=== PATIENT | male | born 1945 | race Caucasian/White ===

== ENCOUNTER → 2017-03-17 | Outpatient (CLI) | payer OTHER, BC ==
[~2017-03-17] MED LIST: ALOGLIPTIN25 MG PO; APAP500 PO; BREO ELLIPTA 11 EACH INH; BREO ELLIPTA 21 EACH PO; CARVEDILOL3.125 MG PO; CARVEDILOL6.25 MG PO; COQ-10100 MG PO; COREG3.125 MG PO; ELIQUIS5 MG PO; FARXIGA5 MG PO; FISH OIL 1,001000 M2 PO; FUROSEMIDE 40 M40 MG PO; KLOR-CON 1010 MEQ PO; LANOXIN 0.250.25 M1 PO; LASIX 20 MG TAB20 MG PO; LASIX 40 MG TAB40 M2 PO; LIPITOR 20 MG T20 M1 PO; LISINOPRIL10 MG; LISINOPRIL2.5 MG PO; LOTRISONE CREAM15 GM; METFORMIN HCL500 MG PO; MOBIC7.5 MG PO; MULTIVITAMINS PO; MULTIVITAMINS1 EAC7 PO; PROAIR HFA8.5 GM INH; PROTONIX40 M1 PO; SORINE 80 MG TA80 M1 PO; SOTALOL 120 MG120 MG PO; SPIRIVA; XARELTO20 MG PO
[2017-03-17 09:30] LABS: ABSOLUTE NEUTROPHILS 6.4 thou/uL (1.4-8.2); BASOPHILS 0.5 % (0.0-2.0); EOSINOPHILS 1.9 % (0.0-3.0); LYMPHOCYTES 17.7 % (24.0-44.0); MANUAL DIFF NO; MCH 30.9 pg (26.0-34.0); MCHC 32.5 g/dL (28.0-37.0); MCV 95.2 fL (80.0-100.0); MONOCYTES 10.1 % (1.0-8.0); PLATELET COUNT 280 thou/uL (150-400); POLYS 69.8 % (36.0-66.0); RBC 4.51 mil/uL (4.50-6.00); RDW 14.1 % (10.5-14.5); WBC 9.2 thou/uL (4.0-11.0)
[2017-03-17 09:38] LABS: CALCIUM 9.1 mg/dL (8.5-10.1); CREATININE 1.4 mg/dL (0.7-1.3); POTASSIUM 4.6 mmol/L (3.5-5.1)
[2017-03-17 09:49] LABS: ALBUMIN 3.5 g/dL (3.4-5.0); TOTAL PROTEIN 6.8 g/dL (6.4-8.2)
== END ==
LOC: CAT 08:57
PROVIDERS: Internal Medicine Pulmonary Disease
DX: J44.9 Chronic obstructive pulmonary disease, unspecified (principal); J90 Pleural effusion, not elsewhere classified

== ENCOUNTER → 2017-04-07 | Outpatient (CLI) | payer OTHER, BC | LOC: RAD 10:39 | DX: J98.6 Disorders of diaphragm (principal); J44.9 Chronic obstructive pulmonary disease, unspecified ==

== ENCOUNTER → 2017-04-08 | Outpatient (CLI) | payer OTHER, BC ==
--- NOTE | ~2017-04-08 | 2DMMODE ---
[facility] [address] [place] [address] 2 D/M-MODE ECHOCARDIOGRAM Name: BRIANNAPEGGY KEANU Room #: REG [facility] [id number] Admission: 04/08/17 Attend Phys: Malachi Martins Discharge: Date of : 45 Date of Service: 04/08/17 1501 Report #: [id number] THIS REPORT FOR: //name// APPROVED REPORT Study performed: 04/08/2017 12:36:22 EXAM: Comprehensive 2D, Doppler, and color-flow Echocardiogram Patient Location: Out-Patient Room #: Echo lab Status: routine Other Information Study Quality: Adequate Indications Hypertension/HDD ICD 2D Dimensions RVDd: 56.21 mm LVEF(%): 39.32 (>50%) IVSd: 8.16 (7-11mm) LVOT Diam: 20.28 (18-24mm) LVDd: 49.78 mm PWd: 8.53 (7-11mm) Ascending Ao: 29.31 (22-36mm) LVDs: 40.24 (25-40mm) Aortic Root: 30.81 mm IVC: 27.00 mm Rosas's LVEF: 39.32 % Volumes Left Atrial Volume (Systole) Single Plane 4CH: 102.49 mL Single Plane 2CH: 75.50 mL LA ESV Index: 44.00 mL/m2 Aortic Valve AoV Peak Cristian.: 0.97 m/s AO Peak Gr.: 3.75 mmHg LVOT Max P.69 mmHg LVOT Max V: 0.65 m/s FRANCIA Vmax: 2.16 cm2 Pulmonary Valve PV Peak Cristian.: 0.55 m/s PV Peak Gr.: 1.21 mmHg Tricuspid Valve TR Peak Cristian.: 1.24 m/s RAP Estimate: 15.00 mmHg TR Peak Gr.: 6.22 mmHg [facility] [place] [address] 2 D/M-MODE ECHOCARDIOGRAM Name: BRIANNAPEGGY KEANU Room #: REG CL [facility]#: [id number] Admission: 04/08/17 Attend Phys: Malachi Martins Discharge: Date of : 45 Date of Service: 04/08/17 1501 Report #: [id number] PA Pressure: 21.00 mmHg Left Ventricle The left ventricle is normal size. There is normal left ventricular wall thickness. Left ventricular ejection fraction is moderate to severely decreased. LVEF is 30-35%. This study is not technically sufficient to allow evaluation of the LV diastolic function due to atrial fibrillation. Right Ventricle Right ventricle is dilated. Right ventricle is hypokinetic. Device lead is present in the right ventricle. Atria Left atrium is dilated. Right atrium is dilated. Device lead is present in the right atrium. Aortic Valve The aortic valve is normal in structure. Trace aortic regurgitation. There is no aortic valvular stenosis. Mitral Valve The mitral valve is normal in structure. Mild mitral regurgitation. No evidence of mitral valve stenosis. Tricuspid Valve The tricuspid valve is normal in structure. There is moderate tricuspid regurgitation. The right atrial pressure is estimated at 15 mmHg. There is no pulmonary hypertension. Pulmonic Valve The pulmonary valve is normal in structure. There is no pulmonic valvular regurgitation. Great Vessels The aortic root is normal in size. Dilated IVC with poor inspiration collapse is consistent with elevated right atrial pressure. Pericardium There is no pericardial effusion. <Conclusion> The left ventricle is normal size. Left ventricular ejection fraction is moderate to severely decreased. [facility] [address] [id number] 2 D/M-MODE ECHOCARDIOGRAM Name: PEGGY REED KEANU Room #: REG Ramya#: [id number] Admission: 04/08/17 Attend Phys: Malachi Martins Discharge: Date of : 45 Date of Service: 04/08/17 1501 Report #: [id number] LVEF is 30-35%. Right ventricle is dilated. Right ventricle is hypokinetic. Right atrium is dilated. Device lead is present in the right atrium. The aortic valve is normal in structure. The mitral valve is normal in structure. Mild mitral regurgitation. There is moderate tricuspid regurgitation. The right atrial pressure is estimated at 15 mmHg. There is no pulmonary hypertension. There is no pericardial effusion. <ELECTRONICALLY SIGNED> By: Malachi Martins MD 04/08/17 1501 1501 150 Malachi Martins MD /INF
== END ==
LOC: CV 09:27
DX: I48.0 Paroxysmal atrial fibrillation (principal)

== ENCOUNTER → 2017-04-08 | Outpatient (CLI) | payer OTHER, BC | LOC: RAD 15:43 | DX: I50.43 Acute on chronic combined systolic (congestive) and diastolic (congestive) heart failure (principal); J90 Pleural effusion, not elsewhere classified ==

== ENCOUNTER 2017-04-14 08:18 | Inpatient (IN) | payer OTHER, BC ==
[~2017-04-14] VITALS: Ht 170.2 cm; Wt 104.8 kg
--- NOTE | ~2017-04-14 | HC ---
[facility] [place] [address] CONSULTATION Name: PEGGY REED Room #: 215-P ADM IN M.R.#: [id number] Admission: 04/16/17 Attend Phys: Malachi Martins MD Discharge: Date of : 45 Report #: [id number] THIS REPORT FOR: //name// CC: Major Vanegas MD DATE OF SERVICE: 04/16/2017 REASON FOR CONSULTATION: Elevated creatinine. HISTORY OF PRESENT ILLNESS: This is a 71-year-old male who has a complex medical history mostly based upon his cardiac and pulmonary problems. He has longstanding ischemic cardiomyopathy. A recent echo showed 30-35% ejection fraction. He also has paroxysmal atrial fibrillation and is in atrial fib more often than not. He has had problems recently with increasing edema, increasing abdominal girth, increasing dyspnea. His weight had gone up. He was put on increasing doses of diuretics and has lost some weight with that. Two days ago, he had a thoracentesis done for enlarging right pleural effusion. That was a massive effusion noted on chest x-ray. He said he gained minimal improvement with his dyspnea related to that thoracentesis. That was a transudative pleural effusion. He has chronic congestive heart failure with . He has had coronary artery disease, previous myocardial infarction. He has a pacemaker and ICD in place. He also has longstanding COPD, chronically on oxygen at home. He wears BiPAP at home. With all these problems, he was noted recently to have an acute rise in his creatinine level. That is documented here in the hospital with a creatinine level of 3.0, his potassium level is 6.2. In reviewing his old labs, he runs a baseline creatinine over the past couple of years, generally in the 1.3-1.4 range. He has some previously documented diabetes. There is no urinalysis on his electronic medical record here at the hospital. He is unaware of any prior renal-related problems. He denies any prostate problems or bladder outlet-type symptoms. He is chronically on some lisinopril. He has been on that even recently. He has been on furosemide and that was recently increased due to worsening edema. He says in spite of all that, he has not been making much in the way of urine, in fact passing only scant amount. He denies symptoms of bladder fullness, frequency or urgency. In addition, he has been chronically on meloxicam for years. He is also on some potassium supplementation and some lisinopril. I cannot find evidence of contrast exposures. I was able to find one old CT scan of his abdomen with reports suggesting mildly atrophic kidneys or at least kidneys with a thinner [address] [address] CONSULTATION Name: PEGGY REED Room #: 215-P [facility] IN M.R.#: [id number] Admission: 04/16/17 Attend Phys: Malachi Martins MD Discharge: Date of : 45 Report #: [id number] cortex than expected, that was from a couple of years ago. PAST MEDICAL HISTORY: Extensive cardiac history is noted above that includes coronary artery disease, paroxysmal atrial fibrillation, previous ventricular tachyarrhythmia's requiring AICD placement, chronic heart failure with a low ejection fraction. He has COPD. He is chronically on BiPAP at night and he also has type 2 diabetes over the past decade or so and recently has been followed by Dr. Major Steele for that. MEDICATIONS: On admission include lisinopril 30 mg daily, furosemide 40 mg b.i.d., meloxicam 7.5 mg daily, metformin 1000 mg b.i.d., furosemide 40 mg b.i.d., potassium 20 mEq daily, Xarelto 20 mg daily, sotalol 120 mg b.i.d., insulin, fish oil; digoxin 0.25 mg daily, that has been held; Farxiga 10 mg daily; carvedilol 6.25 mg b.i.d.; atorvastatin 20 mg daily and alogliptin 25 mg daily. ALLERGIES: No known medical allergies. FAMILY HISTORY: The patient denies any family history of any renal-related problems. Father did have an SC. SOCIAL HISTORY: The patient is . He lives in [place], [place]. He is now retired, previously worked for the [employer]. He was a smoker for 50 years, but has stopped. REVIEW OF SYSTEMS: Weight has been up. It has been coming down somewhat with increased diuresis. Again, he says been passing minimal amounts of urine, but denies dysuria, urgency, frequency or nocturia. He wears his BiPAP at night. He has dyspnea with minimal exertion and he has orthopnea in addition, no chas chest pain. He is unaware of fevers, chills or sweats. Appetite has been diminished, not eating nearly as much as normal, he has had a couple of loose bowel movements. He is unaware of recent visual or hearing change. PHYSICAL EXAMINATION: GENERAL: Acutely ill-appearing male with certainly some chronic type components. He has dyspnea with minimal exertion, he has some pursed lip breathing when at rest; otherwise, at times breathes somewhat easier. VITAL SIGNS: Blood pressure 87/46, heart rate is 75 and irregular, temperature 97.4 and oxygen saturation 98% on supplemental O2. HEENT: Shows pupils are equal and reactive. Sclerae are nonicteric. Oral mucosa is moist. NECK: Supple. JVD apparent when upright, no adenopathy. CHEST: Shows decreased breath sounds in the bases with rales, no wheezes or rhonchi. CARDIOVASCULAR: Heart has very distant heart tones and is irregular. ABDOMEN: Very protuberant, there is substantial abdominal wall edema. [facility] [address] [place] [address] CONSULTATION Name: PEGGY REED ASHLEY Room #: [facility]- ADM IN M.R.#: [id number] Admission: 04/16/17 Attend Phys: Malachi Martins MD Discharge: Date of : 45 Report #: [id number] Abdominal wall is mildly warm associated with that. I am unable to palpate organomegaly or masses. There is too much distension and fluid to tell much of anything else going on. I am unable to tell if the bladder is enlarged. EXTREMITIES: Show 3+ bilateral lower extremity edema up to the knee, 1+ to the thighs. LABORATORY DATA: Sodium 140, potassium 6.2, chloride 108, bicarbonate 24, BUN 62, creatinine 3.0, calcium 9.1, total protein 6.9, albumin 3.4, white count 7.6, hemoglobin 13.9, hematocrit 43.5, platelets 270,000. No urine available. ASSESSMENT: 1. Acute kidney injury. Creatinine level was up to 3. This is a new problem for him, many contributing factors and at this point, it is difficult to tell which is the most substantial contributing factor. He has been on lisinopril. He has been on diuretics. In addition, he has been getting meloxicam. Blood pressure has been on the low side. He certainly has substantial heart failure in addition, I cannot tell if he has any bladder problems because it is impossible to tell by examination of his abdomen. We certainly need to rule out obstruction. We will get a bladder scan. We will get a renal ultrasound done. In the meantime, his lisinopril has been held. We will certainly also stop his nonsteroidals. He needs aggressive diuresis and we will discuss that more below. 2. Congestive heart failure with substantial volume overload. We will get him on some IV Lasix in high doses to force a diuresis. We will start that tonight with the Lasix drip. He is already on a sodium restriction and appears to do a fairly good job of that. 3. Chronic atrial fibrillation. 4. Coronary artery disease with remote myocardial infarction. 5. Severe chronic obstructive pulmonary disease. He chronically wears oxygen that is very limiting. 6. Recent right thoracentesis for large pleural effusion, which was transudative. 7. Diabetes mellitus, on multiple medications. Obviously we have to hold his metformin at this time, he is not particularly acidotic based on his labs, his bicarbonate is 24. PLAN: 1. He has been put on IV fluids, we will stop those. 2. We will give him IV Lasix tonight. 3. Check bladder scan. 4. Renal ultrasound in the morning. 5. Once available, check urinalysis. [address] [address] CONSULTATION Name: PEGGY REED ASHLEY Room #: 215-P ADM IN M.R.#: [id number] Admission: 04/16/17 Attend Phys: Malachi Martins MD Discharge: Date of : 45 Report #: [id number] 6. Repeat labs in the morning. 7. We will follow along closely in the care of this substantially ill gentleman. By: [id number] Jayson Mcadams MD /nt
--- NOTE | ~2017-04-14 | CNG ---
[facility] [place] [address] CYTO-NONGYN REPORT PROCEDURE Name: PEGGY DAVENPORT Room #: REG [facility].#: [id number] Admission: 04/14/17 Date of : 45 Discharge: Report #: [id number] Path Case #: [id number] CYTOPATHOLOGY REPORT COLLECTION DATE: 04/14/2017 RECEIVED DATE: 04/14/2017 SUBMITTING PHYS: Dr. Penelope Quinn OTHER PHYS: Dr. Adan Vanegas CLINICAL HISTORY: Right effusion. SPECIMEN(S) RECEIVED: A.Pleural fluid, Right * * * * * * * * * * * * FINAL DIAGNOSIS: A. Right Pleural fluid: - No malignant epithelial cells identified. Reactive mesothelial cells along with predominantly lymphocytes in a background of debris. PATHOLOGIST: Angelica Morales M.D. REPORT ELECTRONICALLY SIGNED BY: Angelica Morales M.D. DATE/TIME: 04/15/2017 15:58 * * * * * * * * * * * * GROSS PATHOLOGY: A. Pleural fluid, Right: The specimen is submitted unfixed, labeled "Peggy Davenport". Received by the Cytology Department is 30 mL of cloudy yellow fluid. One ThinPrep slide and a cell block were prepared. (clt 04.14.2017) INCOME TAX PREPARER(S): JOYCE Carranza([facility] INITIAL CPT CODE(S): A; [id number] [place], [place] [id number] Professional services performed by [facility] at [facility] [address] [facility] , [place] [address] Technical services performed by [facility] at [address] [place] [address]., [address], [place] [address]. [facility] [address] [place] [address], [facility] [address] [place] [address] PHONE: [phone] [facility] [address] [place] [address] CYTO-NONGYN REPORT PROCEDURE Name: PEGGY DAVENPORT Room #: REG CLI Ghanshyam.#: [id number] Admission: 04/14/17 Date of : 45 Discharge: Report #: [id number] Path Case #: [id number] DIRECTOR: Danny Miller M.D. * * * END OF REPORT * * *
[2017-04-14 08:56] LABS: HEMATOCRIT 42.4 % (42.0-52.0); HEMOGLOBIN 13.9 gm/dL (14.0-18.0); MCH 30.3 pg (26.0-34.0); MCHC 32.7 g/dL (28.0-37.0); MCV 92.7 fL (80.0-100.0); RBC 4.58 mil/uL (4.50-6.00); RDW 14.7 % (10.5-14.5); WBC 7.4 thou/uL (4.0-11.0)
[2017-04-14 09:11] LABS: APTT 29.6 Seconds (24.5-32.8); INR 1.2
[2017-04-14 10:16] LABS: ALBUMIN 3.6 g/dL (3.4-5.0); CALCIUM 9.6 mg/dL (8.5-10.1); CREATININE 3.2 mg/dL (0.7-1.3); POTASSIUM 5.9 mmol/L (3.5-5.1); TOTAL BILIRUBIN 0.9 mg/dL (<0.1-1.0); TOTAL PROTEIN 7.2 g/dL (6.4-8.2)
[2017-04-14 11:38] LABS: CLARITY CLOUDY; COLOR YELLOW; TOTAL VOLUME 60 mL
[2017-04-14 12:53] LABS: BF NUCLEATED CELLS 3436; BF RBC 1022
[2017-04-14 14:03] LABS: MANUAL DIFF YES
[2017-04-14 14:04] LABS: BF MACROPHAGE 3; BF NEUTROPHILS 0
[2017-04-15 12:08] LABS: BODY FLUID ALBUMIN 2.3 g/dL (()); BODY FLUID AMYLASE 38 U/L (()); BODY FLUID GLUCOSE 84 mg/dL (()); BODY FLUID LDH 130 IU/L (()); BODY FLUID PROTEIN 3.3 g/dL (())
[2017-04-16 17:25] VITALS: BP 87/46
[2017-04-16 18:33] LABS: HEMATOCRIT 43.5 % (42.0-52.0); HEMOGLOBIN 13.9 gm/dL (14.0-18.0); MCH 29.5 pg (26.0-34.0); MCV 92.3 fL (80.0-100.0); RBC 4.71 mil/uL (4.50-6.00); RDW 14.8 % (10.5-14.5); WBC 7.6 thou/uL (4.0-11.0)
[2017-04-16] MEDS ORDERED: LEVEMIR SUBQ (18:47)
[2017-04-16] MEDS ORDERED: FARXIGA10 MG PO (18:48)
[2017-04-16 19:08] LABS: ALBUMIN 3.4 g/dL (3.4-5.0); CALCIUM 9.1 mg/dL (8.5-10.1); TOTAL BILIRUBIN 0.8 mg/dL (<0.1-1.0); TOTAL PROTEIN 6.9 g/dL (6.4-8.2)
[2017-04-16 19:14] LABS: DIGOXIN 3.1 ng/mL (0.9-2.0); POTASSIUM 6.2 mmol/L (3.5-5.1)
[2017-04-17] VITALS (8 sets, daily range): BP systolic 87–106; BP diastolic 54–66
[2017-04-17 01:20] LABS: URINE BILIRUBIN NEGATIVE (Negative); URINE BLOOD NEGATIVE (Negative); URINE COLOR YELLOW; URINE GLUCOSE-RANDOM* 1+ (Negative); URINE KETONES NEGATIVE (Negative); URINE NITRITE NEGATIVE (Negative); URINE PROTEIN (DIPSTICK) TRACE (Negative); URINE SPECIFIC GRAVITY 1.025 (1.003-1.035); URINE UROBILINOGEN 0.2 E.U./dl (0.2-1.0)
[2017-04-17 04:28] LABS: MCH 29.7 pg (26.0-34.0); MCHC 32.4 g/dL (28.0-37.0); MCV 91.5 fL (80.0-100.0); RBC 4.37 mil/uL (4.50-6.00); RDW 15.2 % (10.5-14.5); WBC 7.3 thou/uL (4.0-11.0)
[2017-04-17 04:29] LABS: ALBUMIN 3.2 g/dL (3.4-5.0); CALCIUM 8.7 mg/dL (8.5-10.1); CREATININE 2.7 mg/dL (0.7-1.3); PHOSPHORUS 4.9 mg/dL (2.5-4.9)
[2017-04-17 05:13] LABS: POTASSIUM 4.9 mmol/L (3.5-5.1)
[2017-04-18 04:15] VITALS: BP 94/65
[2017-04-18 04:34] LABS: ALBUMIN 3.3 g/dL (3.4-5.0); CALCIUM 8.5 mg/dL (8.5-10.1); CREATININE 1.9 mg/dL (0.7-1.3); POTASSIUM 4.3 mmol/L (3.5-5.1)
[2017-04-18 08:15] VITALS: BP 102/70
[2017-04-18 10:42] VITALS: BP 94/65
[2017-04-18 11:34] VITALS: BP 87/52
[2017-04-18 16:55] VITALS: BP 89/52
[2017-04-18 19:47] VITALS: BP 115/75
[2017-04-19 03:56] VITALS: BP 86/60
[2017-04-19 05:37] LABS: ALBUMIN 3.3 g/dL (3.4-5.0); CALCIUM 7.9 mg/dL (8.5-10.1); CREATININE 1.7 mg/dL (0.7-1.3); PHOSPHORUS 3.5 mg/dL (2.5-4.9); POTASSIUM 3.6 mmol/L (3.5-5.1)
[2017-04-19 08:33] VITALS: BP 84/57
[2017-04-19 11:52] VITALS: BP 107/88
[2017-04-19 15:45] VITALS: BP 91/59
[2017-04-19 19:33] VITALS: BP 88/48
[2017-04-19 23:32] VITALS: BP 117/65
[2017-04-20 04:05] VITALS: BP 122/97
[2017-04-20 06:49] LABS: ALBUMIN 3.5 g/dL (3.4-5.0); CREATININE 1.7 mg/dL (0.7-1.3); PHOSPHORUS 3.4 mg/dL (2.5-4.9); POTASSIUM 3.6 mmol/L (3.5-5.1)
[2017-04-20 08:00] VITALS: BP 97/68
[2017-04-20 12:00] VITALS: BP 88/58
[2017-04-20 16:00] VITALS: BP 87/60
[2017-04-20 20:09] VITALS: BP 85/49
[2017-04-20 20:50] VITALS: BP 87/59
[2017-04-21 04:00] VITALS: BP 92/54
[2017-04-21 04:00] LABS: ALBUMIN 3.2 g/dL (3.4-5.0); CALCIUM 7.8 mg/dL (8.5-10.1); CREATININE 1.6 mg/dL (0.7-1.3); PHOSPHORUS 3.1 mg/dL (2.5-4.9); POTASSIUM 3.9 mmol/L (3.5-5.1)
[2017-04-21] MEDS ORDERED: DIGOXIN125 MCG PO (09:28)
[2017-04-21] MEDS ORDERED: ALDACTONE25 MG PO (09:29)
[2017-04-21] MEDS ORDERED: DEMADEX20 MG PO (09:29)
[2017-04-21 09:56] VITALS: BP 107/68
[2017-04-21] MEDS ORDERED: FLONASE 0.05%50 MCG NASAL (10:22)
== END 2017-04-21 10:32 | disposition home or self-care (01) | DRG 682 ==
LOC: ULTRA 08:18 → 2N 04-16 16:44
PROVIDERS: Hospitalist; Internal Medicine Nephrology; Internal Medicine Pulmonary Disease
PROC: BB4BZZZ Ultrasonography of Pleura (ICD-10-PCS; principal; 2017-04-15)
PROC: 0W9B3ZZ Drainage of Left Pleural Cavity, Percutaneous Approach (ICD-10-PCS; principal; 2017-04-15)
PROC: 5A09457 Assistance with Respiratory Ventilation, 24-96 Consecutive Hours, Continuous Positive Airway Pressure (ICD-10-PCS; 2017-04-17)
DX: N17.9 Acute kidney failure, unspecified (principal); I50.43 Acute on chronic combined systolic (congestive) and diastolic (congestive) heart failure; I13.0 Hypertensive heart and chronic kidney disease with heart failure and stage 1 through stage 4 chronic kidney disease, or unspecified chronic kidney disease; I47.2 Ventricular tachycardia; J90 Pleural effusion, not elsewhere classified; J96.11 Chronic respiratory failure with hypoxia; J44.9 Chronic obstructive pulmonary disease, unspecified; I25.10 Atherosclerotic heart disease of native coronary artery without angina pectoris; I48.0 Paroxysmal atrial fibrillation; Z96.89 Presence of other specified functional implants; E87.5 Hyperkalemia; I25.5 Ischemic cardiomyopathy; I95.9 Hypotension, unspecified; E11.22 Type 2 diabetes mellitus with diabetic chronic kidney disease; N18.9 Chronic kidney disease, unspecified; E78.5 Hyperlipidemia, unspecified; I34.0 Nonrheumatic mitral (valve) insufficiency; I48.2 Chronic atrial fibrillation; G47.33 Obstructive sleep apnea (adult) (pediatric); I25.2 Old myocardial infarction; Z90.49 Acquired absence of other specified parts of digestive tract; Z87.891 Personal history of nicotine dependence; Z99.81 Dependence on supplemental oxygen; Z79.899 Other long term (current) drug therapy; Z98.49 Cataract extraction status, unspecified eye
CPT/HCPCS: 10797

== ENCOUNTER → 2017-06-12 | Outpatient (CLI) | payer OTHER, BC ==
[~2017-06-12] MED LIST changes: +ALDACTONE25 MG PO; +DEMADEX20 MG PO; +DIGOXIN125 MCG PO; +FARXIGA10 MG PO; +FLONASE 0.05%50 MCG NASAL; +LEVEMIR SUBQ
== END ==
LOC: RAD 13:59
DX: J44.9 Chronic obstructive pulmonary disease, unspecified (principal)

== ENCOUNTER → 2017-09-08 | Outpatient (CLI) | payer OTHER, BC | LOC: RAD 11:02 | DX: J44.9 Chronic obstructive pulmonary disease, unspecified (principal); R63.5 Abnormal weight gain ==

== ENCOUNTER → 2017-09-11 | Outpatient (CLI) | payer OTHER, BC | LOC: CAT 10:09 | DX: J90 Pleural effusion, not elsewhere classified (principal); R18.8 Other ascites; J44.9 Chronic obstructive pulmonary disease, unspecified; I25.10 Atherosclerotic heart disease of native coronary artery without angina pectoris; I50.43 Acute on chronic combined systolic (congestive) and diastolic (congestive) heart failure; I48.0 Paroxysmal atrial fibrillation; I25.5 Ischemic cardiomyopathy; Z98.890 Other specified postprocedural states; Z95.0 Presence of cardiac pacemaker ==

== ENCOUNTER → 2017-09-12 | Outpatient (CLI) | payer OTHER, BC ==
[~2017-09-12] MED LIST changes: +INVOKANA300 MG PO; +POTASSIUM20 PO
--- NOTE | ~2017-09-12 | CNG ---
[facility] [place] [address] CYTO-NONGYN REPORT PROCEDURE Name: PEGGY DAVENPORT Room #: REG [facility] Ghanshyam.#: [id number] Admission: 09/12/17 Date of : 45 Discharge: Report #: [id number] Path Case #: [id number] CYTOPATHOLOGY REPORT COLLECTION DATE: 09/12/2017 RECEIVED DATE: 09/12/2017 SUBMITTING PHYS: Dr. Penelope Quinn OTHER PHYS: Dr. Adan Vanegas CLINICAL HISTORY: Ascites SPECIMEN(S) RECEIVED: A.Abdominal fluid * * * * * * * * * * * * FINAL DIAGNOSIS: A. Abdominal fluid: - No malignant epithelial cells identified. Reactive mesothelial cells and acute and chronic inflammatory cells including scattered lymphocytes present. PATHOLOGIST: Sofia Bush M.D. REPORT ELECTRONICALLY SIGNED BY: Sofia Bush M.D. DATE/TIME: 09/16/2017 13:05 * * * * * * * * * * * * GROSS PATHOLOGY: A. Abdominal fluid: The specimen is submitted unfixed, labeled "Peggy Davenport". Received by the Cytology Department is 17 mL of cloudy yellow fluid. One ThinPrep slide and a formalin fixed cell block were prepared. (lg09.12.2017) SPOTLIGHT OPERATOR(S): JOYCE Varela(ASCP)IAC INITIAL CPT CODE(S): A; 95059, 69[address] Professional services performed by [facility] at [facility] [address], [place] [address] Technical services performed by [facility] at [address] [place] [address]., [address], [place] [address]. [facility] [address] [place] [address], [facility] [address] [place], [place] [address] [place] [address] [place] [address] CYTO-NONGYN REPORT PROCEDURE Name: PEGGY DAVENPORT Room #: REG CLI Ghanshyam.#: [id number] Admission: 09/12/17 Date of : 45 Discharge: Report #: [id number] Path Case #: [id number] PHONE: [phone] DIRECTOR: Danny Miller M.D. * * * END OF REPORT * * *
[2017-09-12 13:49] LABS: BF NUCLEATED CELLS 1154; BF RBC 978
[2017-09-12 13:50] LABS: CLARITY CLOUDY; COLOR YELLOW; SOURCE ABDOMINAL FLUID; TOTAL VOLUME 55 mL
[2017-09-12 14:56] LABS: BF NEUTROPHILS 4
[2017-09-12 14:57] LABS: BF MACROPHAGE 25
[2017-09-13 08:29] LABS: SOURCE ABDOMINAL
[2017-09-14 03:08] LABS: BODY FLUID AMYLASE 42 U/L (()); BODY FLUID GLUCOSE 120 mg/dL (()); BODY FLUID LDH 144 IU/L (()); BODY FLUID PROTEIN 3.6 g/dL (())
== END | disposition home or self-care (01) ==
LOC: ULTRA 11:05
PROVIDERS: Internal Medicine Pulmonary Disease
DX: R18.8 Other ascites (principal)

== ENCOUNTER → 2017-09-18 | Outpatient (CLI) | payer OTHER, BC ==
--- NOTE | ~2017-09-18 | CNG ---
[facility] [place] [address] CYTO-NONGYN REPORT PROCEDURE Name: PEGGY REED [facility] [id number] Admission: 09/18/17 Date of : 45 Discharge: Report #: [id number] Path Case #: [id number] CYTOPATHOLOGY REPORT COLLECTION DATE: 09/18/2017 RECEIVED DATE: 09/18/2017 SUBMITTING PHYS: Dr. Penelope Quinn OTHER PHYS: Dr. Adan Hutson CLINICAL HISTORY: Ascites SPECIMEN(S) RECEIVED: A.Abdominal fluid * * * * * * * * * * * * FINAL DIAGNOSIS: A. Abdominal fluid: - No malignant cells identified. Reactive mesothelial cells and inflammation identified. PATHOLOGIST: Lisa Escudero M.D. REPORT ELECTRONICALLY SIGNED BY: Lisa Escudero M.D. DATE/TIME: 09/19/2017 13:55 * * * * * * * * * * * * GROSS PATHOLOGY: A. Abdominal fluid: The specimen is submitted unfixed, labeled "Issac Peggy Mary". Received by the Cytology Department is 25 mL of cloudy orange fluid. One ThinPrep slide and a formalin fixed cell block were prepared. (mm 09.18.2017) RN ENT(S): JOYCE Cervantes(ASCP) INITIAL CPT CODE(S): A; 94902, 72684 Professional services performed by [facility] at [facility] [address], [place] [address] Technical services performed by [facility] at [address] [place] [address]., [address], [place] [address]. [facility] [address] [place] [address], [facility] [address] [place] [address] [facility] [address] [place] [address] CYTO-NONGYN REPORT PROCEDURE Name: PEGGY REED Room #: REG XAVIER Bui#: [id number] Admission: 09/18/17 Date of : 45 Discharge: Report #: [id number] Path Case #: [id number] PHONE: [phone] DIRECTOR: Danny Miller M.D. * * * END OF REPORT * * *
[2017-09-18 10:45] LABS: HEMATOCRIT 44.4 % (42.0-52.0); HEMOGLOBIN 14.8 gm/dL (14.0-18.0); MCH 30.3 pg (26.0-34.0); MCHC 33.3 g/dL (28.0-37.0); MCV 91.1 fL (80.0-100.0); RBC 4.87 mil/uL (4.50-6.00); RDW 15.8 % (10.5-14.5); WBC 9.6 thou/uL (4.0-11.0)
[2017-09-18 10:54] LABS: CALCIUM 9.9 mg/dL (8.5-10.1); CREATININE 1.6 mg/dL (0.7-1.3); POTASSIUM 4.2 mmol/L (3.5-5.1)
[2017-09-18 10:55] LABS: APTT 29.3 Seconds (24.5-32.8); INR 1.1; PROTIME 11.3 Seconds (9.3-11.4)
[2017-09-18 12:58] LABS: BF NUCLEATED CELLS 1200; BF RBC 7289
[2017-09-18 13:19] LABS: CLARITY TURBID; COLOR YELLOW; SOURCE ABDOMINAL FLUID; TOTAL VOLUME 60 mL
[2017-09-18 15:30] LABS: BF MACROPHAGE 35; BF NEUTROPHILS 4
[2017-09-19 13:11] LABS: BODY FLUID ALBUMIN 1.7 g/dL (()); BODY FLUID AMYLASE 52 U/L (()); BODY FLUID GLUCOSE 137 mg/dL (()); BODY FLUID LDH 92 IU/L (()); BODY FLUID PROTEIN 3.1 g/dL (())
[2017-09-21 04:36] LABS: SOURCE ABDOMINAL
== END | disposition home or self-care (01) ==
LOC: LABMALL 09:43 → ULTRA 09:43
PROVIDERS: Internal Medicine Pulmonary Disease
DX: R18.8 Other ascites (principal); I48.91 Unspecified atrial fibrillation; Z79.899 Other long term (current) drug therapy; Z79.4 Long term (current) use of insulin; Z79.01 Long term (current) use of anticoagulants

== ENCOUNTER → 2017-09-23 | Outpatient (CLI) | payer OTHER, BC | END | disposition home or self-care (01) | LOC: ULTRA 09:54 | DX: R18.8 Other ascites (principal) ==

== ENCOUNTER → 2017-09-24 | Outpatient (CLI) | payer OTHER, BC | LOC: ULTRA 10:37 | DX: K55.059 Acute (reversible) ischemia of intestine, part and extent unspecified (principal); J44.9 Chronic obstructive pulmonary disease, unspecified; Z90.49 Acquired absence of other specified parts of digestive tract ==

== ENCOUNTER → 2017-10-09 | Outpatient (CLI) | payer OTHER, BC ==
[~2017-10-09] VITALS: Ht 175.3 cm; Wt 96.6 kg
--- NOTE | ~2017-10-09 | S ---
[facility] [place] [address] SURGICAL PATH RPT PROCEDURE Name: PEGGY DAVENPORT Room #: REG [facility].#: [id number] Admission: 10/09/17 Date of : 45 Discharge: Report #: [id number] Path Case #: [id number] PATHOLOGY REPORT COLLECTION DATE: 10/09/2017 RECEIVED DATE: 10/09/2017 SUBMITTING PHYS: Dr. Chester Adams OTHER PHYS: Dr. Penelope Vanegas SPECIMEN(S) RECEIVED: A.Transjugular liver biopsy * * * * * * * * * * * * FINAL DIAGNOSIS: Liver, tranjugular needle core biopsy: - Mild zone 3 atrophy along with fibrosis surrounding central vein and hepatocytes. - Mild portal chronic inflammation without any interface activity. - No evidence of bridging fibrosis or cirrhosis. COMMENT: Examination shows a needle core biopsy tissue of liver with atrophy in zone 3 along with dilated sinusoidal spaces. Central veins show fibrosis in many areas. Extravasated red blood cells are not identified. There is no evidence of portal edema, ductular proliferation, or cholestasis identified in zone 1. The portal tracts show mild chronic inflammatory infiltrates comprised of predominantly lymphocytes, and occasional eosinophils. Interface activity is not seen. Glycogenated nuclei are identified in zone 1. There is no evidence of steatosis, Kath- Denk's hyaline, or acidophil bodies present. There is no evidence of cholangitis, or prominence of lymphoid aggregates identified. There is no hepatocyte necrosis. Thrombi are not seen within the hepatic veins. Special stains are performed. Trichrome stain - fibrosis surrounding central veins, and a few hepatocytes in zone 3 in addition to enlarged portal tracts and subtle periportal fibrosis (stage 1). Reticulin stain - Hepatocyte atrophy in zone 3 with subtle regenerative changes identified in zone 2 as well as zone 1. Iron stain - negative. PAS with and without diastase - negative for intracytoplasmic globules in zone 1; occasional Kupffer cell macrophages. Overall, the findings are suggestive of zone 3 atrophy or mild congestive hepatic venopathy. Clinical correlation is suggested. Co-reviewed: Dr. Sofia Bush (IUV:db; 10/13/2017) [address] [address] SURGICAL PATH RPT PROCEDURE Name: PEGGY DAVENPORT [place] Room #: REG CLI [facility].#: [id number] Admission: 10/09/17 Date of : 45 Discharge: Report #: [id number] Path Case #: [id number] PATHOLOGIST: Angelica Morales M.D. REPORT ELECTRONICALLY SIGNED BY: Angelica Morales M.D. DATE/TIME: 10/13/2017 13:15 * * * * * * * * * * * * GROSS PATHOLOGY: Received in formalin labeled "Peggy Davenport, liver biopsy," are 3 distinct needle cores of bennett soft tissue ranging from 1.0 to 1.5 cm in length, which are submitted entirely in cassette A1. (SDY; 10/09/2017) CLINICAL HISTORY: Transjugular liver biopsy INITIAL CPT CODE(S): A; 86171, 05865, 17322, 00316, 31324, 604[address] Professional services performed by [facility] at [facility] [address], [place] [address] Technical services performed by [facility] at [address] [place] [address], [address], [place] [address]. [facility] [address] [place] [address] PHONE: [phone] DIRECTOR: Danny Miller M.D. * * * END OF REPORT * * *
[2017-10-09 08:16] VITALS: BP 164/58
[2017-10-09 08:31] LABS: HEMATOCRIT 46.7 % (42.0-52.0); HEMOGLOBIN 15.4 gm/dL (14.0-18.0); MCH 30.2 pg (26.0-34.0); MCV 91.5 fL (80.0-100.0); RBC 5.11 mil/uL (4.50-6.00); WBC 9.1 thou/uL (4.0-11.0)
[2017-10-09 08:43] LABS: INR 1.1
[2017-10-09 08:45] LABS: CALCIUM 9.5 mg/dL (8.5-10.1); CREATININE 1.5 mg/dL (0.7-1.3)
== END ==
LOC: SPEC 06:27
PROVIDERS: Radiology Diagnostic Radiology
DX: K76.6 Portal hypertension (principal)

== ENCOUNTER → 2017-10-31 | Outpatient (CLI) | payer OTHER, BC | END | disposition home or self-care (01) | LOC: ULTRA 09:17 | DX: R18.8 Other ascites (principal) ==

== ENCOUNTER → 2017-11-26 | Outpatient (CLI) | payer OTHER, BC | END | disposition home or self-care (01) | LOC: ULTRA 09:32 | DX: R18.8 Other ascites (principal); I48.91 Unspecified atrial fibrillation; Z79.4 Long term (current) use of insulin; Z79.899 Other long term (current) drug therapy ==

== ENCOUNTER → 2018-03-05 | Outpatient (CLI) | payer OTHER, BC | LOC: RAD 10:33 | DX: J44.9 Chronic obstructive pulmonary disease, unspecified (principal) ==

== ENCOUNTER → 2018-03-11 | Outpatient (CLI) | payer OTHER, BC ==
--- NOTE | ~2018-03-11 | 2DMMODE ---
[facility] [address] [place] [address] 2 D/M-MODE ECHOCARDIOGRAM Name: BRIANNAPEGGY KEANU Room #: REG CL [facility]#: [id number] Admission: 03/11/18 Attend Phys: Malachi Martins Discharge: Date of : 45 Date of Service: 03/11/18 1509 Report #: [id number] THIS REPORT FOR: //name// APPROVED REPORT Study performed: 03/11/2018 13:14:19 EXAM: Comprehensive 2D, Doppler, and color-flow Echocardiogram Patient Location: Echo lab Status: routine BSA: 2.09 HR: 63 bpm BP: 108/69 mmHg Other Information Study Quality: Adequate, best apical with patient flat on back. Indications Dyspnea SOB, ICD 2D Dimensions RVDd: 48.03 mm LVEF(%): 36.72 (>50%) IVSd: 12.11 (7-11mm) LVOT Diam: 20.83 (18-24mm) LVDd: 56.26 mm PWd: 9.87 (7-11mm) Ascending Ao: 29.97 (22-36mm) LVDs: 46.19 (25-40mm) Aortic Root: 28.05 mm Rosas's LVEF: 36.72 % Volumes Left Atrial Volume (Systole) Single Plane 4CH: 39.13 mL Single Plane 2CH: 42.83 mL LA ESV Index: 24.00 mL/m2 Aortic Valve AoV Peak Cristian.: 1.15 m/s AO Peak Gr.: 5.31 mmHg LVOT Max P.53 mmHg LVOT Max V: 0.62 m/s FRANCIA Vmax: 1.83 cm2 Mitral Valve E/A Ratio: 4.6 [facility] [address] [place] [address] 2 D/M-MODE ECHOCARDIOGRAM Name: PEGGY REED KEANU Room #: REG [id number] Admission: 03/11/18 Attend Phys: Malachi Martins Discharge: Date of : 45 Date of Service: 03/11/18 1509 Report #: [id number] MV Decel. Time: 184.33 ms MV E Max Cristian.: 0.88 m/s MV A Cristian.: 0.19 m/s MV PHT: 53.46 ms IVRT: 110.73 ms Pulmonary Valve PV Peak Cristian.: 0.64 m/s PV Peak Gr.: 1.66 mmHg Pulmonary Vein P Vein S: 0.32 m/s P Vein D: 0.31 m/s P Vein S/D Ratio: 1.03 Tricuspid Valve TR Peak Cristian.: 2.04 m/s RAP Estimate: 10.00 mmHg TR Peak Gr.: 16.64 mmHg PA Pressure: 27.00 mmHg Left Ventricle The left ventricle is normal size. There is normal left ventricular wall thickness. Left ventricular systolic function is moderately decreased. LVEF is 30%. Transmitral Doppler flow pattern suggests restrictive physiology. Right Ventricle Right ventricle is dilated. Right ventricle is hypokinetic. Atria The left atrium size is normal. Right atrium is severely dilated. Aortic Valve Aortic valve is midly calcified. Trace to mild aortic regurgitation. There is no aortic valvular stenosis. Mitral Valve The mitral valve is normal in structure. Trace to mild mitral regurgitation. No evidence of mitral valve stenosis. Tricuspid Valve The tricuspid valve is normal in structure. Moderate tricuspid regurgitation. Estimated PAP 27 mmHg. Pulmonic Valve [facility] [address] [place] [address] 2 D/M-MODE ECHOCARDIOGRAM Name: PEGGY REED Room #: REG [facility]#: [id number] Admission: 03/11/18 Attend Phys: Malachi Martins Discharge: Date of : 45 Date of Service: 03/11/18 1509 Report #: [id number] The pulmonary valve is normal in structure. Trace pulmonic regurgitation. Great Vessels The aortic root is normal in size. IVC is dilated and collapses >50% with inspiration. Pericardium There is no pericardial effusion. <Conclusion> The left ventricle is normal size. Left ventricular systolic function is moderately decreased. LVEF is 30%. Transmitral Doppler flow pattern suggests restrictive physiology. Right ventricle is dilated. Right ventricle is hypokinetic. Right atrium is severely dilated. Aortic valve is midly calcified. Trace to mild aortic regurgitation. Trace to mild mitral regurgitation. Moderate tricuspid regurgitation. Estimated PAP 27 mmHg. The aortic root is normal in size. There is no pericardial effusion. <ELECTRONICALLY SIGNED> By: José Miguel Kam MD, FACC 03/11/18 1509 1509 1509 José Miguel Kam MD, FACC /INF
== END ==
LOC: CV 13:02
DX: I07.1 Rheumatic tricuspid insufficiency (principal); I70.0 Atherosclerosis of aorta; J44.9 Chronic obstructive pulmonary disease, unspecified

== ENCOUNTER → 2018-07-06 | Outpatient (CLI) | payer OTHER, BC | LOC: RAD 09:56 | DX: J44.9 Chronic obstructive pulmonary disease, unspecified (principal); I51.7 Cardiomegaly; J98.6 Disorders of diaphragm; I48.91 Unspecified atrial fibrillation; E11.9 Type 2 diabetes mellitus without complications; Z87.891 Personal history of nicotine dependence ==

== ENCOUNTER 2018-08-04 12:11 | Emergency (ER) | payer OTHER, BC ==
[~2018-08-04] VITALS: Ht 172.7 cm; Wt 99.8 kg
[2018-08-04 12:46] LABS: ABSOLUTE NEUTROPHILS 6.6 thou/uL (1.4-8.2); BASOPHILS 0.8 % (0.0-2.0); EOSINOPHILS 1.8 % (0.0-3.0); HEMATOCRIT 47.1 % (42.0-52.0); HEMOGLOBIN 15.6 gm/dL (14.0-18.0); LYMPHOCYTES 15.4 % (24.0-44.0); MCH 32.5 pg (26.0-34.0); MCHC 33.2 g/dL (28.0-37.0); MCV 97.8 fL (80.0-100.0); MONOCYTES 9.5 % (1.0-8.0); PLATELET COUNT 196 thou/uL (150-400); POLYS 72.5 % (36.0-66.0); RBC 4.81 mil/uL (4.50-6.00); RDW 14.9 % (10.5-14.5); WBC 9.1 thou/uL (4.0-11.0)
[2018-08-04 12:53] LABS: CALCIUM 10.2 mg/dL (8.5-10.1); CREATININE 1.6 mg/dL (0.7-1.3); POTASSIUM 4.1 mmol/L (3.5-5.1)
[2018-08-04] MEDS ORDERED: VICTOZA 3-0.6 MG/0.1 SUBQ (13:00)
[2018-08-04 13:51] VITALS: BP 109/54
[2018-08-04] MEDS ORDERED: NORFLEX100 MG PO (13:58)
== END 2018-08-04 14:21 | disposition home or self-care (01) ==
LOC: ER 12:11
PROVIDERS: Nurse Practitioner Family
DX: S16.1XXA Strain of muscle, fascia and tendon at neck level, initial encounter (principal); S29.012A Strain of muscle and tendon of back wall of thorax, initial encounter; S09.90XA Unspecified injury of head, initial encounter; J44.9 Chronic obstructive pulmonary disease, unspecified; I48.91 Unspecified atrial fibrillation; E11.9 Type 2 diabetes mellitus without complications; G56.00 Carpal tunnel syndrome, unspecified upper limb; Z95.810 Presence of automatic (implantable) cardiac defibrillator; Z79.4 Long term (current) use of insulin; Z87.891 Personal history of nicotine dependence; W01.0XXA Fall on same level from slipping, tripping and stumbling without subsequent striking against object, initial encounter; Y93.89 Activity, other specified; Y92.89 Other specified places as the place of occurrence of the external cause; Y99.8 Other external cause status

== ENCOUNTER 2018-08-12 14:15 | Inpatient (IN) | payer OTHER, BC ==
[~2018-08-12] VITALS: Ht 172.7 cm; Wt 105.2 kg
--- NOTE | ~2018-08-12 | P ---
[facility] [place] [address] PROCEDURE REPORT Name: PEGGY REED Room #: 219-P [facility] IN M.R.#: [id number] Admission: 08/12/18 Attend Phys: Adan Vanegas MD Discharge: 08/19/18 Date of : 45 Report #: [id number] THIS REPORT FOR: //name// CC: Major Vanegas PROCEDURE: Upgrade to adult-chamber ICD. PREOPERATIVE DIAGNOSES: 1. Sick sinus syndrome. 2. Symptomatic bradycardia. 3. Acute congestive heart failure. 4. History of paroxysmal atrial fibrillation. 5. History of ventricular tachycardia. HISTORY: The patient is a 73-year-old male who I follow for cardiomyopathy, status post ICD implantation, who has atrial fibrillation as well as ventricular tachycardia, on sotalol therapy. He has been on low doses of beta blockers due to the fact that he has had mild sinus bradycardia in the past, but presented to clinic with severe sinus bradycardia that was symptomatic and was likely resulting in congestive heart failure. He is here for upgrade to a dual-chamber ICD. ANESTHESIA: The patient underwent MAC anesthesia, with no anesthesia-related complications. DESCRIPTION OF PROCEDURE: The patient underwent informed consent. We discussed the details of the procedure, including the risks, which include but not limited to bleeding, infection, vascular damage, cardiac perforation and pneumothorax. He understood these risks and is willing to proceed. As such, the patient was brought to the EP laboratory in a fasting and sedated state and prepped and draped in a sterile fashion. He received IV vancomycin prior to initiation of the procedure and underwent a venogram, showing patency of the left axillary vein. On fluoroscopy of his chest, he does have evidence of an abandoned Sprint [place] lead and a newer ICD lead as well that is connected to his current generator. Next, I injected lidocaine at the prior incision site. Incision was made and the chronic pocket was opened. I did make some room for the larger device. I did take care of some of the anterior capsule. Next, I obtained access in the left axillary vein x 1 using the extrathoracic approach, with the sheath positioned using the modified Seldinger technique. A lead was placed in the right atrial appendage with adequate pacing and sensing thresholds and it was sutured to the prepectoral fascia. The pocket was then irrigated with vancomycin and then the new device was connected to the old ICD [facility] [address] [place] [address] PROCEDURE REPORT Name: BRIANNAPEGGY KEANU Room #: 219-P DIS IN M.R.#: [id number] Admission: 08/12/18 Attend Phys: Adan Vanegas MD Discharge: 08/19/18 Date of : 45 Report #: [id number] lead and the new atrial lead. Both leads were found to be functioning normally. The pocket was closed in 3 layers using 2-0 for the deep layer, 3-0 for the mid layer and 4-0 for the subcuticular layer, with surgical glue placed at the outer skin layer. The patient awoke neurologically and hemodynamically intact. No complications and no significant bleeding. Of note, he was in atrial fibrillation. The explanted defibrillator was a Medtronic model #IXDQ3E1, serial #[id number]. The newly implanted device was a Medtronic model #XCVY1R5, serial #[id number]. The newly implanted atrial lead was a model #5076, serial #[id number]. The ICD lead was a Medtronic model #6947, serial #[id number], implanted on 07/12/2010 and the old abandoned Sprint Michael lead was a 6949, serial #[id number], originally implanted back on 12/14/2004. The atrial lead demonstrated a P-wave of 1.8 millivolts, pacing threshold of 1 volt at 0.5 milliseconds and the pacing impedance of 597 ohms. The RV lead demonstrated stable pacing and sensing thresholds. The device was programmed to the DDD 60-130 mode. The VT and VF zones were programmed back to their nominal settings. The VF zone was set at 330 milliseconds while the VT zone was set at 360 milliseconds. CONCLUSIONS: 1. Successful upgrade to a dual-chamber ICD. 2. Satisfactory atrial and ventricular pacing and sensing thresholds. By: 1432 0055 Malachi Martins MD /nt
--- NOTE | ~2018-08-12 | HC ---
[facility] [place] [address] CONSULTATION Name: PEGGY REED Room #: 219-P ADM IN M.R.#: [id number] Admission: 08/12/18 Attend Phys: Major Solano MD Discharge: Date of : 45 Report #: [id number] THIS REPORT FOR: //name// CC: Major Vanegas DATE OF SERVICE: 08/12/2018 HISTORY OF PRESENT ILLNESS: The patient is a 73-year-old patient of mine who I follow for ischemic cardiomyopathy, COPD and ventricular tachycardia. I last saw the patient back in April, at which time he was doing relatively well. His last hospitalization was back in 03/2017, where he was admitted with acute renal insufficiency and hyperkalemia due to likely over diuresis, lisinopril and meloxicam. Since then he has not had any recent hospitalizations for heart failure. In February of this year, he underwent a coronary angiogram showing that he has mild CAD with a cardiac index of 2.1 and PA pressures of 35/18. The patient came in to clinic today because he has been having increased fatigue and shortness of breath going on for about a month and has really gotten worse over the past week. He reports that he is at the point where he cannot walk more than a few steps before he becomes very short of breath. He has also reported some weight gain and increased swelling. REVIEW OF SYSTEMS: A 12-point review of systems was performed and was negative other than what I mentioned above. PAST MEDICAL HISTORY: 1. Ischemic cardiomyopathy, EF of 30-35%. 2. Ventricular tachycardia with no recurrence on sotalol therapy. 3. [place] [employer] functional class 2-3 heart failure. 4. Coronary artery disease, status post myocardial infarction. 5. Paroxysmal atrial fibrillation, on Xarelto. 6. Medtronic VVI ICD with a generator change in 02/2014. 7. Nuclear stress test in 2013, no ischemia. 8. Chronic obstructive pulmonary disease, on oxygen. 9. Hospitalization for atrial fibrillation in 06/2016 with his sotalol dose increased. 10. Diabetes. 11. Hyperlipidemia. 12. Hypertension. 13. Nuclear stress test in 06/2016, no ischemia. 14. Echocardiogram 03/2017, EF 30-35% with moderate to severe MR. 15. Acute renal failure with creatinine 2.7, potassium 6.5 in 03/2017. 16. Ascites with recent liver biopsy showing no evidence of cirrhosis. 17. Cardiac catheterization 03/19/2018 with mild coronary artery disease. SOCIAL HISTORY: [place] [address] CONSULTATION Name: PEGGY REED [place] Room #: 219-P [facility] IN M.R.#: [id number] Admission: 08/12/18 Attend Phys: Major Solano MD Discharge: Date of : 45 Report #: [id number] FAMILY HISTORY: Noncontributory. ALLERGIES: No known drug allergies. CARDIAC MEDICATIONS: Include: 1. Alogliptin benzoate. 2. Lipitor 20. 3. Invokana. 4. Carvedilol 3.125 b.i.d. 5. Coenzyme Q. 6. Digoxin. 7. Fish oil. 8. Insulin. 9. Victoza. 10. Multivitamin. 11. Potassium chloride. 12. Sotalol 120 b.i.d. 13. Spironolactone 25 mg a day. 14. Torsemide 60 mg in the morning and 20 at night. 15. Xarelto. PHYSICAL EXAMINATION: VITAL SIGNS: Blood pressure is 92/54, pulse is 44. GENERAL: He is somewhat dyspneic on exam, sitting in a wheelchair. HEENT: Oropharynx is clear. NECK: Supple, with no thyromegaly. HEART: Bradycardic and regular. He does have elevated JVD. LUNGS: Clear to auscultation bilaterally. ABDOMEN: Soft, nontender, nondistended, no hepatosplenomegaly. EXTREMITIES: There is trace to 1+ lower extremity edema. NEUROLOGIC: Cranial nerves 2-12 are intact. LABORATORY DATA: His 12-lead EKG today demonstrates that he has sinus bradycardia at 44 beats per minute with no ischemic changes. A device interrogation was performed today and shows no atrial fibrillation, nor any ventricular arrhythmias. ASSESSMENT: 1. Symptomatic bradycardia. 2. Acute on chronic left ventricular systolic heart failure. 3. History of ventricular tachycardia. 4. Severe chronic obstructive pulmonary disease. In summary, the patient is a 73-year-old with the above issues who presents with [address] [address] CONSULTATION Name: PEGGY REED Room #: 219-P [facility] IN M.R.#: [id number] Admission: 08/12/18 Attend Phys: Major Solano MD Discharge: Date of : 45 Report #: [id number] evidence of symptomatic sinus bradycardia and acute on chronic left ventricular systolic heart failure. For his sinus bradycardia, I would like to hold all AV marly blocking agents including his digoxin, carvedilol, and sotalol therapy. We have had issues with bradycardia in the past and perhaps if this does not improve we may need to proceed with placement of an atrial lead. If after he comes off of medications this does not improve, then perhaps upgrade to a dual chamber ICD can be performed Friday. I would hold his blood thinners starting today. With regards to his congestive heart failure, I would like him to obtain baseline labs and a chest x-ray. I would not start diuresis yet as I am not sure what his potassium or kidneys are doing. We will place him on the Hospitalist Service and we will follow along as consultants given his multiple other health issues. By: 1335 48 Malachi Martins MD /nt
--- NOTE | ~2018-08-12 | EKG ---
[place] [address] [address] [facility] [facility] [address] ELECTROCARDIOGRAM REPORT Name: PEGGY REED Room #: 219-P ADM IN M.R.#: [id number] Admission: 08/12/18 Attend Phys: Major Solano MD Discharge: Date of : 45 Report #: [id number] THIS REPORT FOR: //name// [facility] Test Date: 2018-08-12 Test Time: 16:50:36 Pat Name: PEGGY REED Department: Room: 219 P Gender: M Panel Coverer: Yaritza DAVID : 1945 Requested By: Malachi Martins Order Number: [id number] MD: Francesco Dickey Measurements Intervals [place] Rate: 47 P: [place]: QRS: 56 QRSD: 70 T: 192 QT: 513 QTc: 454 Interpretive Statements Sinus bradycardia Nonspecific ST segment abnormality Compared to ECG 07/24/2016 09:02:49 Premature ventricular complexes are no longer present Electronically Signed On 08-13-2018 10:47:37 BRINEYARD SUPERVISOR by Francesco Dickey [email or web address] <ELECTRONICALLY SIGNED> By: Francesco Dickey MD, [facility] 08/13/18 1047 49 49 Francesco Dickey MD, [facility] /EPI
--- NOTE | ~2018-08-12 | P ---
[facility] [place] [address] PROCEDURE REPORT Name: PEGGY REED Room #: 219-P ADM IN M.R.#: [id number] Admission: 08/12/18 Attend Phys: Adan Vanegas MD Discharge: Date of : 45 Report #: [id number] THIS REPORT FOR: //name// CC: Major Vanegas ICD UPGRADE PREOPERATIVE DIAGNOSES: 1. Sick sinus syndrome. 2. Symptomatic bradycardia. 3. Cardiomyopathy. POSTOPERATIVE DIAGNOSES: 1. Sick sinus syndrome. 2. Symptomatic bradycardia. 3. Cardiomyopathy. HISTORY: The patient is a 73-year-old male with a history of severe cardiomyopathy as well as chronic sick sinus syndrome and paroxysmal atrial fibrillation as well as VT, on sotalol therapy. For the past several years, he has been limited in ability to up titrate medications due to lack of an atrial lead. He presented to my clinic last week with symptomatic bradycardia, heart rates in the low 40s and acute on chronic LV systolic heart failure. He is here for upgrade to a dual chamber ICD. ANESTHESIA: The patient underwent MAC anesthesia with no anesthesia related complications. DESCRIPTION OF PROCEDURE: The patient underwent informed consent. We discussed the details of the procedure including the risks, which include but not limited to bleeding, infection, vascular damage, cardiac perforation and pneumothorax. He understood these risks and is willing to proceed. As such, the patient was brought to the EP laboratory in a fasting and unsedated state and prepped and draped in a sterile fashion. He received IV vancomycin prior to initiation of the procedure. Next, I injected lidocaine at the prior incision site. The pocket was opened and the old device was removed from the pocket. Next, I obtained access to the left axillary vein x 1 and I placed a 7-Palest[place] short sheath in the left axillary vein using the modified Seldinger technique. Next, under fluoroscopy, an atrial lead was positioned into the right atrium. A lead was tested and found to be functioning normally. The lead was sutured to the prepectoral fascia and then was connected to the device. The device was tested and found to be functioning normally. The pocket was then irrigated with vancomycin and the pocket was then closed in 3 layers using 2-0 for the deep layer, 3-0 for the mid layer and 4-0 for the subcuticular layer. Surgical glue was placed to the outer skin layer. The patient awoke neurologically and hemodynamically intact. No complications and no significant bleed. [address] [address] PROCEDURE REPORT Name: PEGGY REED Room #: 219-P [facility] IN M.R.#: [id number] Admission: 08/12/18 Attend Phys: Adan Vanegas MD Discharge: Date of : 45 Report #: [id number] The explanted device was a Medtronic product number QNHT0V1, serial number [id number], implanted in 02/2014. The newly implanted device was a Medtronic model number UVIH8P9, serial number [id number]. The newly implanted atrial lead was a model number 5076, serial number [id number]. This lead demonstrated normal pacing and sensing thresholds. The RV lead was a Bill.comtronic model number 6947, serial number [id number], which was implanted on 07/12/2010. This lead was functioning normally. There was also an abandoned ICD lead, which was a 6949, serial number [id number], which was originally implanted back in 12/14/2004 and was in the pocket and capped. The device was programmed to the AAIR, DDDR 60-130 mode. The VT zone was set at 360 milliseconds with ATP, followed by max output shocks. The VF zone was set at less than 330 milliseconds with ATP while charging, followed by max output shocks. CONCLUSIONS: 1. Successful upgrade to a dual chamber ICD. 2. Satisfactory atrial and ventricular pacing and sensing thresholds. By: 1430 1732 Malachi Martins MD /nt
--- NOTE | ~2018-08-12 | EKG ---
[place] [address] [address] [facility] [employer] [place] [address] ELECTROCARDIOGRAM REPORT Name: PEGGY REED Room #: 219-P ADM IN M.R.#: [id number] Admission: 08/12/18 Attend Phys: Adan Vanegas MD Discharge: Date of : 45 Report #: [id number] THIS REPORT FOR: //name// [facility] Test Date: 2018-08-17 Test Time: 00:05:36 Pat Name: PEGGY REED Department: Room: 219 P Gender: M Cardiac Catheterization Technologist: STEF : 1945 Requested By: Adan Vanegas Order Number: [id number] MD: Francesco Dickey Measurements Intervals [place] Rate: 125 P: AL: QRS: 53 QRSD: 96 T: 259 QT: 303 QTc: 437 Interpretive Statements Atrial fibrillation Ventricular premature complex Low voltage Nonspecific ST and T wave abnormality Compared to ECG 08/12/2018 16:50:36 Atrial fibrillation has replaced sinus bradycardia premature ventricular complexes are now present Electronically Signed On 08-17-2018 8:34:30 SMALLTALK DEVELOPER by Francesco Dickey [email or web address] <ELECTRONICALLY SIGNED> By: Francesco Dickey MD, [facility] 08/17/18 0834 0005 0005 Francesco Dickey MD, [facility] /EPI
[~2018-08-12 14:15] MED LIST changes: +NORFLEX100 MG PO; +VICTOZA 3-0.6 MG/0.1 SUBQ
[2018-08-12 14:25] VITALS: BP 97/42
[2018-08-12 15:56] LABS: ABSOLUTE NEUTROPHILS 6.5 thou/uL (1.4-8.2); BASOPHILS 1.1 % (0.0-2.0); EOSINOPHILS 1.8 % (0.0-3.0); HEMATOCRIT 33.6 % (42.0-52.0); HEMOGLOBIN 11.3 gm/dL (14.0-18.0); LYMPHOCYTES 20.4 % (24.0-44.0); MCH 32.7 pg (26.0-34.0); MCHC 33.6 g/dL (28.0-37.0); MCV 97.5 fL (80.0-100.0); MONOCYTES 9.9 % (1.0-8.0); PLATELET COUNT 279 thou/uL (150-400); POLYS 66.8 % (36.0-66.0); RBC 3.44 mil/uL (4.50-6.00); RDW 15.6 % (10.5-14.5); WBC 9.7 thou/uL (4.0-11.0)
[2018-08-12 16:11] LABS: CALCIUM 10.6 mg/dL (8.5-10.1); CREATININE 2.3 mg/dL (0.7-1.3); POTASSIUM 4.5 mmol/L (3.5-5.1)
[2018-08-12] MEDS ORDERED: SPIRONOLACTONE25 M1 PO (17:03)
[2018-08-12] MEDS ORDERED: DEMADEX20 MG PO ×2 (17:05→17:06)
[2018-08-12] MEDS ORDERED: DIGOXIN125 MCG PO (17:08)
[2018-08-12 17:36] LABS: ALBUMIN 3.9 g/dL (3.4-5.0); DIRECT BILIRUBIN 0.4 mg/dL (<0.1-0.3); TOTAL BILIRUBIN 1.2 mg/dL (<0.1-1.0); TOTAL PROTEIN 7.3 g/dL (6.4-8.2)
[2018-08-12 19:54] VITALS: BP 118/65
[2018-08-12 19:55] VITALS: BP 118/65
[2018-08-13] VITALS (7 sets, daily range): BP systolic 97–126; BP diastolic 47–63
[2018-08-13 03:11] LABS: HEMATOCRIT 30.7 % (42.0-52.0); HEMOGLOBIN 10.4 gm/dL (14.0-18.0); MCH 32.4 pg (26.0-34.0); MCHC 33.8 g/dL (28.0-37.0); PLATELET COUNT 255 thou/uL (150-400); RBC 3.19 mil/uL (4.50-6.00); RDW 14.6 % (10.5-14.5); WBC 8.7 thou/uL (4.0-11.0)
[2018-08-13 03:25] LABS: ALBUMIN 3.5 g/dL (3.4-5.0); CALCIUM 9.8 mg/dL (8.5-10.1); CREATININE 2.1 mg/dL (0.7-1.3); MAGNESIUM 2.3 mg/dL (1.8-2.4); POTASSIUM 3.9 mmol/L (3.5-5.1); TOTAL BILIRUBIN 0.9 mg/dL (<0.1-1.0); TOTAL PROTEIN 6.7 g/dL (6.4-8.2)
[2018-08-13 04:35] LABS: ABSOLUTE NEUTROPHILS 6.5 thou/uL (1.4-8.2)
[2018-08-13 04:37] LABS: PLATELET ESTIMATE NORMAL; POLYCHROMASIA 1+
[2018-08-14 05:05] LABS: CALCIUM 9.5 mg/dL (8.5-10.1); CREATININE 1.9 mg/dL (0.7-1.3); POTASSIUM 3.8 mmol/L (3.5-5.1)
[2018-08-14 05:22] VITALS: BP 127/73
[2018-08-14 08:30] VITALS: BP 99/53
[2018-08-14 08:43] LABS: APTT 29.4 Seconds (24.5-32.8); INR 1.1; PROTIME 11.5 Seconds (9.3-11.4)
[2018-08-14 11:30] VITALS: BP 107/66
[2018-08-14 16:25] VITALS: BP 101/49
[2018-08-14 20:15] VITALS: BP 92/53
[2018-08-15 02:19] VITALS: BP 107/56
[2018-08-15 02:20] VITALS: BP 107/56
[2018-08-15 05:09] LABS: CALCIUM 8.6 mg/dL (8.5-10.1); CREATININE 1.8 mg/dL (0.7-1.3); POTASSIUM 3.6 mmol/L (3.5-5.1)
[2018-08-15 08:54] VITALS: BP 100/56
[2018-08-15 13:00] VITALS: BP 84/56
[2018-08-15 16:24] VITALS: BP 98/52
[2018-08-15 19:56] VITALS: BP 103/46
[2018-08-16 05:08] VITALS: BP 90/53
[2018-08-16 07:21] VITALS: BP 113/65
[2018-08-16 11:36] VITALS: BP 110/61
[2018-08-16 17:05] VITALS: BP 101/60
[2018-08-16 19:09] VITALS: BP 102/61
[2018-08-16 23:56] VITALS: BP 140/46
[2018-08-17] VITALS (11 sets, daily range): BP systolic 90–123; BP diastolic 50–73
[2018-08-17 10:18] LABS: ALBUMIN 3.4 g/dL (3.4-5.0); CALCIUM 8.2 mg/dL (8.5-10.1); CREATININE 1.2 mg/dL (0.7-1.3); MAGNESIUM 2.2 mg/dL (1.8-2.4); POTASSIUM 3.5 mmol/L (3.5-5.1); TOTAL BILIRUBIN 1.1 mg/dL (<0.1-1.0); TOTAL PROTEIN 6.3 g/dL (6.4-8.2)
[2018-08-18] VITALS (7 sets, daily range): BP systolic 93–142; BP diastolic 39–86
[2018-08-19 04:45] VITALS: BP 114/63
[2018-08-19 05:06] LABS: CALCIUM 7.7 mg/dL (8.5-10.1); CREATININE 1.6 mg/dL (0.7-1.3)
[2018-08-19 07:25] VITALS: BP 95/56
[2018-08-19] MEDS ORDERED: CARVEDILOL12.5 MG PO (09:01)
[2018-08-19] MEDS ORDERED: K-DUR 20 MEQ T20 MEQ PO (09:01)
[2018-08-19] MEDS ORDERED: DEMADEX 2020 MG/1 TA PO (09:01)
[2018-08-19 10:15] VITALS: BP 95/56
[2018-08-19] MEDS ORDERED: ASPIRIN325 PO (11:54)
[2018-08-19] MEDS ORDERED: DIGOXIN250 MCG PO (11:55)
== END 2018-08-19 12:20 | disposition home or self-care (01) | DRG 226 ==
LOC: 2N 14:15 → ENTRNSPT 08-19 11:59 → EDTRNSPTSTS 08-19 12:00 → 2N 08-19 12:20
PROVIDERS: Family Medicine; Internal Medicine; Internal Medicine Cardiovascular Disease; Nurse Practitioner
DX: I49.5 Sick sinus syndrome (principal); I50.43 Acute on chronic combined systolic (congestive) and diastolic (congestive) heart failure; N17.9 Acute kidney failure, unspecified; I47.2 Ventricular tachycardia; I13.0 Hypertensive heart and chronic kidney disease with heart failure and stage 1 through stage 4 chronic kidney disease, or unspecified chronic kidney disease; R18.8 Other ascites; I48.0 Paroxysmal atrial fibrillation; I25.5 Ischemic cardiomyopathy; I25.10 Atherosclerotic heart disease of native coronary artery without angina pectoris; J44.9 Chronic obstructive pulmonary disease, unspecified; E11.9 Type 2 diabetes mellitus without complications; N18.9 Chronic kidney disease, unspecified; I95.9 Hypotension, unspecified; R16.0 Hepatomegaly, not elsewhere classified; E78.5 Hyperlipidemia, unspecified; I25.2 Old myocardial infarction; Z87.891 Personal history of nicotine dependence; Z99.81 Dependence on supplemental oxygen; Z90.49 Acquired absence of other specified parts of digestive tract; Z98.42 Cataract extraction status, left eye; Z98.41 Cataract extraction status, right eye; Z79.01 Long term (current) use of anticoagulants; Z79.4 Long term (current) use of insulin; Z79.899 Other long term (current) drug therapy
CPT/HCPCS: 10081; 62110; 62900; 70005

== ENCOUNTER 2018-09-09 15:48 | Inpatient (IN) | payer OTHER, BC ==
[~2018-09-09] VITALS: Ht 172.7 cm; Wt 107.5 kg
--- NOTE | ~2018-09-09 | EKG ---
[place] [address] [facility] [place] [address] ELECTROCARDIOGRAM REPORT Name: PEGGY REED Room #: 362-P ADM IN M.R.#: [id number] Admission: 09/09/18 Attend Phys: Adan Vanegas MD Discharge: Date of : 45 Report #: [id number] THIS REPORT FOR: //name// [facility] ED Test Date: 2018-09-09 Test Time: 16:17:09 Pat Name: PEGGY REED Department: Room: 362 Gender: M Director Of Personnel: LEFTY : 1945 Requested By: Juany Monet Order Number: [id number] MD: Francesco Dickey Measurements Intervals [place] Rate: 83 P: [place]: QRS: 58 QRSD: 82 T: 224 QT: 442 QTc: 520 Interpretive Statements Atrial fibrillation Low voltage Nonspecific ST and T wave abnormality Prolonged QT interval Compared to ECG 08/17/2018 00:05:36 Heart rate has slowed Electronically Signed On 09-10-2018 8:30:03 ENGINEERING EXECUTIVE by Francesco Dickey [email or web address] <ELECTRONICALLY SIGNED> By: Francesco Dickey MD, [facility] 09/10/18 0830 1617 161 Francesco Dickey MD, [facility] /EPI
--- NOTE | ~2018-09-09 | HC ---
[facility] [place] [address] CONSULTATION Name: PEGGY REED Room #: 362-P ADM IN M.R.#: [id number] Admission: 09/09/18 Attend Phys: Adan Vanegas MD Discharge: Date of : 45 Report #: [id number] THIS REPORT FOR: //name// CC: Adan Vanegas DATE OF SERVICE: 09/10/2018 ATTENDING PHYSICIAN: Dr. Vanegas. REASON FOR CONSULTATION: Chronic kidney disease. HISTORY OF PRESENT ILLNESS: The patient is known to our service, followed by Dr. Schmid, with chronic kidney disease, right and left-sided heart failure, was admitted with marked fluid overload. He had a 7-liter paracentesis done this morning. He has swelling in his legs. He is evaluated for further recommendations regarding diuresis. Of note, the patient has been eating a very high-salt diet of late. PAST MEDICAL HISTORY: He has a history of sick sinus syndrome with atrial fibrillation. He has a dual chamber ICD, managed by Dr Martins. He has history of diabetes mellitus with peripheral neuropathy, chronic kidney disease without definitive evidence of proteinuria. He has right and left-sided congestive heart failure as well. HOME MEDICATIONS: Include carvedilol 12.5 mg b.i.d., torsemide 60 mg b.i.d., Xarelto 20 mg daily, insulin, aspirin 325 mg daily, Lanoxin 250 mcg daily. Alogliptin Victoza and Invokana are all listed as diabetic medications. PAST MEDICAL HISTORY: He has had the pacemaker, chronic atrial fibrillation, history of COPD, long-standing diabetes mellitus with neuropathy, decreased left ventricular ejection fraction, decreased function of the right heart, previous ascites status post previous paracentesis recurrently. SOCIAL HISTORY: Former heavy smoker, quit 5 years ago. REVIEW OF SYSTEMS: GENERAL: He has been feeling reasonably well. EYES: No trouble with his vision except possibly some glaucoma, he has been having that checked out. ENT: Hearing okay, swallows okay. No mouth sores. ENDOCRINE: Positive for the diabetes. RESPIRATORY: Does get somewhat easily short-winded. HEART: No recent angina. GASTROINTESTINAL: No nausea, vomiting, diarrhea. GENITOURINARY: Has a good urinary stream without dysuria. NEUROLOGIC: He has got a little bit of both numbness and pain in his feet. [facility] [address] [place] [address] CONSULTATION Name: PEGGY REED KEANU Room #: 362-P [facility] IN .R.#: [id number] Admission: 09/09/18 Attend Phys: Adan Vanegas MD Discharge: Date of : 45 Report #: [id number] PSYCHIATRIC: No depression or anxiety. FAMILY HISTORY: Positive only for heart disease in his father. PHYSICAL EXAMINATION: GENERAL: This is a reasonably comfortable appearing gentleman, seen after his paracentesis, sitting up in his chair. SKIN: Unremarkable. SKELETAL: Somewhat overweight. HEENT: Extraocular movements are full. Vision intact. No scleral icterus. Hearing intact. Mucous membranes moist. NECK: Supple, no JVD. CHEST: Clear to auscultation. HEART: Regular. ABDOMEN: Soft and nontender, somewhat distended. EXTREMITIES: Show 2+ peripheral edema. NEUROLOGIC: Grossly intact. LABORATORY DATA: Hemoglobin is 13.3. Sodium 136, potassium 4.3, chloride 100, bicarbonate 25, BUN 21, creatinine 1.4. ASSESSMENT AND PLAN: 1. Chronic kidney disease. He has chronic kidney disease without a lot of proteinuria, previous renal sonogram was performed last year and was unremarkable. His creatinine usually running between 1.5 and 2, it is a little bit on the low side due to his volume overload and dilution. 2. Right and left-sided congestive heart failure, needs diuresis. We will add spironolactone to his torsemide, he does not have proteinuria. He is not on a converting enzyme inhibitor. 3. Diabetes mellitus with peripheral neuropathy. 4. Sick sinus syndrome with pacemaker. 5. Chronic atrial fibrillation. By: [id number] José Miguel Cisneros MD /nt
[~2018-09-09 15:48] MED LIST changes: +ASPIRIN325 PO; +CARVEDILOL12.5 MG PO; +DEMADEX 2020 MG/1 TA PO; +DIGOXIN250 MCG PO; +K-DUR 20 MEQ T20 MEQ PO; +SPIRONOLACTONE25 M1 PO
[2018-09-09 16:22] LABS: HEMATOCRIT 40.8 % (42.0-52.0); HEMOGLOBIN 13.3 gm/dL (14.0-18.0); MCH 30.3 pg (26.0-34.0); MCHC 32.5 g/dL (28.0-37.0); MCV 93.3 fL (80.0-100.0); RBC 4.37 mil/uL (4.50-6.00); RDW 15.7 % (10.5-14.5); WBC 19.4 thou/uL (4.0-11.0)
[2018-09-09 16:38] LABS: CALCIUM 9.6 mg/dL (8.5-10.1); CREATININE 1.4 mg/dL (0.7-1.3); POTASSIUM 4.3 mmol/L (3.5-5.1)
[2018-09-09 16:47] LABS: ALBUMIN 3.6 g/dL (3.4-5.0); TOTAL BILIRUBIN 1.4 mg/dL (<0.1-1.0); TOTAL PROTEIN 6.9 g/dL (6.4-8.2)
[2018-09-09 16:48] LABS: ABSOLUTE NEUTROPHILS 14.9 thou/uL (1.4-8.2); ANISOCYTOSIS 1+; BURR CELLS OCCASIONAL
[2018-09-09 16:52] LABS: PLATELET ESTIMATE NORMAL
[2018-09-09 17:36] LABS: URINE BILIRUBIN NEGATIVE (Negative); URINE BLOOD NEGATIVE (Negative); URINE CLARITY CLEAR; URINE COLOR YELLOW; URINE GLUCOSE-RANDOM* 1+ (Negative); URINE KETONES NEGATIVE (Negative); URINE LEUKOCYTES NEGATIVE (Negative); URINE NITRITE NEGATIVE (Negative); URINE PROTEIN (DIPSTICK) NEGATIVE (Negative); URINE SPECIFIC GRAVITY 1.015 (1.005-1.035); URINE UROBILINOGEN 0.2 E.U./dl (0.2-1.0)
[2018-09-09 18:22] VITALS: BP 105/64
[2018-09-09 18:24] VITALS: BP 117/76
[2018-09-09 19:59] VITALS: BP 123/61
[2018-09-10 03:30] VITALS: BP 95/54
[2018-09-10 07:55] VITALS: BP 95/58
[2018-09-10 12:55] LABS: PROT/CREAT RATIO 0.1; URINE CREATININE-RANDOM* 91.9 mg/dL; URINE PROTEIN-RANDOM* 10.3 mg/dL (<11.9)
[2018-09-10 16:23] VITALS: BP 87/54
[2018-09-10 19:34] VITALS: BP 97/60
[2018-09-11 03:52] VITALS: BP 91/52
[2018-09-11 05:58] LABS: ALBUMIN 2.9 g/dL (3.4-5.0); CALCIUM 8.6 mg/dL (8.5-10.1); CREATININE 1.6 mg/dL (0.7-1.3); PHOSPHORUS 3.8 mg/dL (2.5-4.9)
[2018-09-11 07:39] VITALS: BP 99/61
[2018-09-11] MEDS ORDERED: SPIRONOLACTONE25 M1 PO (07:58)
[2018-09-11] MEDS ORDERED: DEMADEX 2020 MG/1 TA PO (07:59)
[2018-09-11 11:10] VITALS: BP 150/64
[2018-09-11 11:34] VITALS: BP 150/64
== END 2018-09-11 12:09 | disposition home or self-care (01) | DRG 682 ==
LOC: ER 15:48 → EROBS 17:09 → 3W 17:09 → ENTRNSPT 09-11 11:47 → EDTRNSPTSTS 09-11 12:01 → 3W 09-11 12:09
PROVIDERS: Family Medicine; Internal Medicine Nephrology; Physician Assistant
PROC: 5A09357 Assistance with Respiratory Ventilation, Less than 24 Consecutive Hours, Continuous Positive Airway Pressure (ICD-10-PCS; principal; 2018-09-09)
PROC: 0W9G3ZZ Drainage of Peritoneal Cavity, Percutaneous Approach (ICD-10-PCS; 2018-09-10)
PROC: 5A09357 Assistance with Respiratory Ventilation, Less than 24 Consecutive Hours, Continuous Positive Airway Pressure (ICD-10-PCS; 2018-09-10)
PROC: 5A09357 Assistance with Respiratory Ventilation, Less than 24 Consecutive Hours, Continuous Positive Airway Pressure (ICD-10-PCS; 2018-09-11)
DX: N17.9 Acute kidney failure, unspecified (principal); I50.43 Acute on chronic combined systolic (congestive) and diastolic (congestive) heart failure; R18.8 Other ascites; I47.2 Ventricular tachycardia; J90 Pleural effusion, not elsewhere classified; I13.0 Hypertensive heart and chronic kidney disease with heart failure and stage 1 through stage 4 chronic kidney disease, or unspecified chronic kidney disease; J44.9 Chronic obstructive pulmonary disease, unspecified; I25.5 Ischemic cardiomyopathy; I25.10 Atherosclerotic heart disease of native coronary artery without angina pectoris; E78.5 Hyperlipidemia, unspecified; D72.829 Elevated white blood cell count, unspecified; N18.9 Chronic kidney disease, unspecified; E11.649 Type 2 diabetes mellitus with hypoglycemia without coma; I49.5 Sick sinus syndrome; E11.42 Type 2 diabetes mellitus with diabetic polyneuropathy; I48.2 Chronic atrial fibrillation; E11.22 Type 2 diabetes mellitus with diabetic chronic kidney disease; Z95.0 Presence of cardiac pacemaker; Z90.49 Acquired absence of other specified parts of digestive tract; Z79.01 Long term (current) use of anticoagulants; Z98.42 Cataract extraction status, left eye; Z98.41 Cataract extraction status, right eye; Z87.891 Personal history of nicotine dependence; Z82.49 Family history of ischemic heart disease and other diseases of the circulatory system
CPT/HCPCS: 10879

== ENCOUNTER 2018-09-21 14:39 | Inpatient (IN) | payer OTHER, BC ==
[~2018-09-21] VITALS: Ht 172.7 cm; Wt 103.0 kg
[2018-09-21] MEDS ORDERED: METFORMIN HCL500 MG PO (15:04)
[2018-09-21 15:46] VITALS: BP 96/48
[2018-09-21 17:21] LABS: ABSOLUTE NEUTROPHILS 9.9 thou/uL (1.4-8.2); BASOPHILS 0.4 % (0.0-2.0); EOSINOPHILS 0.4 % (0.0-3.0); HEMATOCRIT 37.3 % (42.0-52.0); HEMOGLOBIN 12.2 gm/dL (14.0-18.0); LYMPHOCYTES 6.7 % (24.0-44.0); MCH 29.7 pg (26.0-34.0); MCHC 32.5 g/dL (28.0-37.0); MCV 91.2 fL (80.0-100.0); MONOCYTES 7.6 % (1.0-8.0); PLATELET COUNT 236 thou/uL (150-400); POLYS 84.9 % (36.0-66.0); RBC 4.09 mil/uL (4.50-6.00); RDW 15.9 % (10.5-14.5); WBC 11.7 thou/uL (4.0-11.0)
[2018-09-21 17:27] LABS: CALCIUM 8.8 mg/dL (8.5-10.1); CREATININE 2.1 mg/dL (0.7-1.3)
[2018-09-21 19:42] VITALS: BP 85/42
[2018-09-22 05:35] VITALS: BP 79/48
--- NOTE | 2018-09-22 07:30 | NUR ---
Assumed care at 1845. Pt resting in bed. Denies chest requested for an order for a bipap. Callled the admitting provider and got the orders. No identifed needs at the moment. Will continue to monitor.
[2018-09-22 07:40] VITALS: BP 110/56
--- NOTE | 2018-09-22 16:18 | NUR ---
ASSUMED CARE AT 0700. AXOX4. PLEASANT. CALLS APPROPIRATELY. L CHEST ICD WOUND INFECTION. LEFT CHEST RED AND SWOLLEN AND RAISED. ICE PACK APPLIED AND PAIN MANAGED WITH NORCO. BLOOD CULTURE CAME BACK POSITIVE WITH GRAM POSITIVE COCCI. CONSULTED FOR IV ATB MANAGEMENT. ZOSYN D/C AND CONT VANC. PER , THE ATTENDING PHYSICIAN, THE PT WILL BE TRANSFERRED OUT [facility] FOR ICD EXTRACTION. FACILITY NOT CONFIRMED. NOTIFIED US TO MAKE CHART COPY. PT MADE AWARE OF THE PLAN FOR TOMORROW. VSS. NO S/S ACUTE DISTRESS NOTED OR REPORTED AT THIS TIME. WILL CONT TO MONITOR FOR ANY CHANGES OR PROGRESS.
[2018-09-22 17:06] VITALS: BP 82/50
--- NOTE | 2018-09-22 17:31 | NUR ---
BP LOW 82/50 P 57. ASSYMPTOMATIC, DENIES CHEST PAIN,SOB,LIGHT HEADEDNESS. PT SAYS IT'S PRETTY NORMAL FOR HIM TO RUN LOW. CALLED AND REPORTED IT TO MD. PER MD, DO NOT GIVE COREG, DO NOT GIVE TOLSEMIDE FOR 5PM. WILL FOLLOW MD'S ORDER AND MONITOR THE PT CLOSELY.
[2018-09-22 19:22] VITALS: BP 90/47
[2018-09-23 03:31] VITALS: BP 113/67
--- NOTE | 2018-09-23 07:27 | NUR ---
progress pt pain controlled with po pain meds, up ad jeni, vss bp low bp meds held earlier, no complaints of dizzness. iv antibiotics given as ordered cpap on with spo2 monitor at night tele intact reading v paced, some pvc's ratres in the 80's
[2018-09-23 08:00] VITALS: BP 113/72
[2018-09-23 09:06] VITALS: BP 113/67
[2018-09-23 09:32] LABS: ABSOLUTE NEUTROPHILS 5.6 thou/uL (1.4-8.2); BASOPHILS 0.6 % (0.0-2.0); EOSINOPHILS 1.4 % (0.0-3.0); HEMATOCRIT 39.3 % (42.0-52.0); LYMPHOCYTES 12.6 % (24.0-44.0); MCH 29.9 pg (26.0-34.0); MCHC 33.1 g/dL (28.0-37.0); MCV 90.4 fL (80.0-100.0); MONOCYTES 11.6 % (1.0-8.0); PLATELET COUNT 235 thou/uL (150-400); POLYS 73.8 % (36.0-66.0); RBC 4.34 mil/uL (4.50-6.00); WBC 7.6 thou/uL (4.0-11.0)
[2018-09-23 09:41] LABS: CALCIUM 8.8 mg/dL (8.5-10.1); CREATININE 1.7 mg/dL (0.7-1.3); POTASSIUM 3.7 mmol/L (3.5-5.1)
--- NOTE | 2018-09-23 09:50 | NUR ---
CM STOPPED BY BEDSIDE NURSE AND STATED " PT NEEDS TRANSFER TO [facility], EVERYTHING HAS BEEN DONE EXCEPT TRANSPORTATION."/BEDSIDE NURSE. CM FILLED OUT TRANSFER FORM, CM TEAM FILLED OUT [facility] TRANSPORTATION FORM. CHART COPY REQUESTED. PT REQUIRES 2L/NC. NEED TRANSFERRED FOR PROCEDURE ON INFECTED ICD. BEDSIDE NURSE CALLED REPORT TO ANISH. ACCEPTING DR RICKI CANDELARIO. PEGGY HAS NOTIFIED HIS SON ALREADY. ONCE HAVE DC/TRANSFER ORDER, WILL SENT UP TRANSPORT TIME. CM VISITED WITH PT AT BEDSIDE. HE IS A & O X 4 PLEASANT AND ABLE TO MAKE HIS NEEDS KNOW. LIVE HOME AND CG FOR BEATRIZ, BY DAUGHTER IS HELPING HER WHILE NOT HOME. INDEPENDENT. COME HERE TO GET TAPPED OF FLUID, GO OUTPT CARDIAC REHAB HERE. STILL DRIVE, HAVE WALK IN SHOWER WITH [facility]. USE BIPAP AND HOME OXYGEN. BEEN HERE 3 X SINCE THANKSGIVING AND READY TO FEEL BETTER."/ DCP TRANSFER TO [facility]
--- NOTE | 2018-09-23 09:53 | HC ---
[facility] [place] [place] [address] CONSULTATION Name: PEGGY REED Room #: 452-P ADM IN M.R.#: [id number] Admission: 09/21/18 Attend Phys: Malachi Martins MD Discharge: Date of : 45 Report #: [id number] THIS REPORT FOR: //name// CC: Malachi Vanegas MD DATE OF SERVICE: 09/22/2018 TYPE OF CONSULTATION: Infectious Disease. ATTENDING PHYSICIAN: Malachi Martins MD REASON FOR CONSULTATION: Bacteremia. HISTORY OF PRESENT ILLNESS: A 73-year-old white man with significant cardiomyopathy and cardiac arrhythmias, requiring permanent pacemaker and defibrillator, is admitted with swelling, tenderness, redness of the pacemaker site and found to have positive blood cultures x 2. He is on vancomycin and Zosyn. Today, the patient is feeling better. Discussed situation with Dr. Malachi Martins and the patient is in the process of being transferred to [facility] for possible pacemaker explantation and removal of leads. The patient is feeling some better and relates he had several paracenteses, very likely related to his right-sided heart failure. DRUG ALLERGIES: None listed. MEDICATIONS: The patient is on treatment; Zosyn 3.375 grams IV every 8 hours, vancomycin 1500 mg IV daily, hydrocodone p.r.n., multivitamins daily, aspirin, digoxin, insulin lispro, insulin glargine, spironolactone 25 mg b.i.d., p.r.n. glucose, glucagon, metformin 1000 mg b.i.d., we will discontinue torsemide 40 mg b.i.d., carvedilol 12.5 mg b.i.d. PAST MEDICAL HISTORY: 1. Ischemic cardiomyopathy, dilated and poorly contractile right ventricle. 2. Coronary artery disease, previous myocardial infarction, atrial fibrillation. 3. Diabetes mellitus, hypertension, acute kidney disease on chronic kidney disease, recurrent ascites requiring paracentesis. 4. Cardiac catheterization on 03/19/2018, mild coronary artery disease. 5. Medtronic dual-chamber ICD implantation in July 2018. FAMILY HISTORY: See H and P. SOCIAL HISTORY: See H and P. [facility] [address] [place] [address] CONSULTATION Name: PEGGY REED FRESH MEADOWS Room #: 452-P [facility] IN .R.#: [id number] Admission: 09/21/18 Attend Phys: Malachi Martins MD Discharge: Date of : 45 Report #: [id number] REVIEW OF SYSTEMS: Painful swelling and redness around the left infraclavicular pacemaker site, is improved today. He has significant swelling of legs and he believes he may have recurrent ascites. PHYSICAL EXAMINATION: GENERAL: Chronically ill-appearing white man. VITAL SIGNS: Temperature 97.7, pulse 85, respirations 20, BP 96/48, weight 237 pounds on admission, height 5 feet 8 inches. HEENMT: Within range. NECK: Supple, no thyromegaly. LUNGS: Clear. HEART: S1, S2. No gallop or murmur. Left infraclavicular pocket showed wound site redness, minimal tenderness, fluid around the pacemaker site. ABDOMEN: Distended with possible ascites. GENITALIA AND RECTAL: Deferred. EXTREMITIES: Reveal 4+ pitting pretibial edema. NEUROLOGIC: Grossly within normal limits. LABORATORY DATA: Revealed sodium 132, potassium 4, BUN 36, creatinine 2.1, glucose 119. WBC is 11.7, hemoglobin 12.2, platelets 236,000. ESR is 32 mm per hour. The C-reactive protein is 172.3 mg/L. MICROBIOLOGY DATA: Two out of two blood cultures from the date of admission are positive with gram-positive cocci. RADIOLOGY EVALUATION: Revealed cardiomegaly, mainly right-sided; permanent pacemaker. No effusion. ASSESSMENT: 1. Bacteremia with gram-positive cocci. 2. Infected pacemaker and defibrillator. 3. Right-sided heart failure. 4. Acute kidney injury on chronic kidney disease. 5. Chronic obstructive pulmonary disease. 6. Cardiac arrhythmias. SUGGESTIONS: Recommend continue treatment with vancomycin, possibly if sensitivities recommend, so we will continue this antibiotic for 4-6 weeks. We will discontinue Zosyn. May need removal of pacemaker and leads. Discussed situation with Dr. Malachi Martins. Dr. Martins, thank you for requesting my suggestion. <ELECTRONICALLY SIGNED> By: Jose Martins MD 09/23/18 0953 [id number] 0053 Jose Martins MD /nt
--- NOTE | 2018-09-23 10:27 | NUR ---
dp completed [facility] ambulance form transportation request to [facility], also sent form to 4w to put on front of patient's chart. DP faxed ambulance form to [facility], will wait till dc orders in before calling and requsting ambulance time.
[2018-09-23] MEDS ORDERED: DIGOXIN250 MCG PO (11:39)
[2018-09-23] MEDS ORDERED: VICTOZA 3-0.6 MG/0.1 SUBQ (11:39)
--- NOTE | 2018-09-23 13:38 | NUR ---
PT STABLE THROUGHOUT SHIFT. PT TRANSFERRED TO [facility], REPORT CALLED TO [facility]. PT LEFT UNIT VIA [facility].
--- NOTE | 2018-09-25 14:52 | H ---
[facility] [place] [address] HISTORY AND PHYSICAL Name: PEGGY REED Room #: 452-P [facility] IN M.R.#: [id number] Admission: 09/21/18 Attend Phys: Malachi Martins MD Discharge: 09/23/18 Date of : 45 Report #: [id number] THIS REPORT FOR: //name// CC: Malachi Vanegas DATE OF SERVICE: 09/21/2018 REASON FOR ADMISSION: ICD pocket discomfort, possible infection. HISTORY OF PRESENT ILLNESS: The patient is a 73-year-old patient of mine, I know him extremely well, you can see my prior notes to get a detailed history, but has cardiomyopathy, has an ICD, has atrial fibrillation, recently hospitalized with symptomatic bradycardia and therefore, I upgraded him to a dual chamber ICD. He has still been in atrial fibrillation. We have been waiting to get his INR therapeutic. Plans were to cardiovert him in the next week or so. He came to the clinic today after he noted swelling of his pocket site and discomfort. He denies any fevers or chills. He was afebrile in clinic. I recommended admission to work him up to ensure this device is not infected. We tried to do outpatient labs, but all labs are closed due to the New Year's. I did not feel it is safe for him to wait until this could be done in a few days. He reports that he has gained some weight, but from a heart failure standpoint, he is doing about the same and is stable. PAST MEDICAL HISTORY: 1. Ischemic cardiomyopathy. 2. Ventricular tachycardia, which he was treated with sotalol. 3. Coronary artery disease, status post WA. 4. Paroxysmal atrial fibrillation, on sotalol and Xarelto. 5. Medtronic single chamber ICD with generator exchange in 02/2014, nuclear stress test in 2013, no ischemia. 6. Severe COPD, on oxygen. 7. Hospitalization for AFib 06/2016 with sotalol dose increased. 8. Diabetes. 9. Hyperlipidemia. 10. Hypertension. 11. Nuclear stress test 06/2016, no ischemia. 12. Echo 03/2017, EF 30-35% with moderate to severe MR. 13. History of recurrent acute renal failure with creatinine 2.7 and potassium 6.5, 03/2017. 14. Recurrent ascites, status post liver biopsy with no evidence of cirrhosis and requiring multiple paracenteses. 15. Cardiac catheterization 03/19/2018 showing mild CAD. 16. Upgrade to Medtronic dual chamber ICD after presenting with symptomatic sinus bradycardia requiring hospitalization. This device was implanted in 07/2018. [address] [address] HISTORY AND PHYSICAL Name: BRIANNAPEGGY KEANU Room #: 452-P [facility] IN M.R.#: [id number] Admission: 09/21/18 Attend Phys: Malachi Martins MD Discharge: 09/23/18 Date of : 45 Report #: [id number] SOCIAL HISTORY: Does not smoke. FAMILY HISTORY: Noncontributory. ALLERGIES: None. MEDICATIONS: Have been reviewed. OBJECTIVE: VITAL SIGNS: Stable. GENERAL: He is in no acute distress. Alert and oriented x 3. HEENT: Oropharynx clear. NECK: Supple. No thyromegaly. CARDIOVASCULAR: Irregularly irregular. ABDOMEN: Soft, nontender ____. EXTREMITIES: There is trace to 1+ lower extremity edema. NEUROLOGIC: Cranial nerves 2-12 are intact. SKIN: His incision site appears to be slightly swollen and I did see him in clinic just last week and it looked perfect. It is slightly warm and the incision site appears to be nicely healed with no evidence of any compromise to the incision site. ASSESSMENT AND PLAN: 1. Possible implantable cardioverter-defibrillator pocket infection. 2. History of congestive heart failure, currently stable. 3. Atrial fibrillation, on Xarelto. 4. Ischemic cardiomyopathy. 5. History of ventricular tachycardia. PLAN: The patient will be admitted for further evaluation. We will obtain blood cultures, CBC, sed rate and CRP. We will await results of the lab work. We will hold off on any antibiotics at this time. We will potentially consult ID. We discussed that if there is evidence of infection, he may need a lead extraction, which would have to be done at an outside hospital. <ELECTRONICALLY SIGNED> By: Malachi Martins MD 09/25/18 1452 [id number] Malachi Martins MD /nt
== END 2018-09-23 15:00 | disposition short-term general hospital (02) | DRG 315 ==
LOC: 4W 14:39
PROVIDERS: ADMIT Internal Medicine Cardiovascular Disease
PROC: 5A09357 Assistance with Respiratory Ventilation, Less than 24 Consecutive Hours, Continuous Positive Airway Pressure (ICD-10-PCS; principal; 2018-09-22)
DX: T82.7XXA Infection and inflammatory reaction due to other cardiac and vascular devices, implants and grafts, initial encounter (principal); N17.9 Acute kidney failure, unspecified; I13.0 Hypertensive heart and chronic kidney disease with heart failure and stage 1 through stage 4 chronic kidney disease, or unspecified chronic kidney disease; I48.1 Persistent atrial fibrillation; R18.8 Other ascites; I25.10 Atherosclerotic heart disease of native coronary artery without angina pectoris; I48.0 Paroxysmal atrial fibrillation; E78.5 Hyperlipidemia, unspecified; I25.5 Ischemic cardiomyopathy; B96.89 Other specified bacterial agents as the cause of diseases classified elsewhere; Y83.1 Surgical operation with implant of artificial internal device as the cause of abnormal reaction of the patient, or of later complication, without mention of misadventure at the time of the procedure; I50.9 Heart failure, unspecified; I50.810 Right heart failure, unspecified; N18.9 Chronic kidney disease, unspecified; E11.22 Type 2 diabetes mellitus with diabetic chronic kidney disease; J44.9 Chronic obstructive pulmonary disease, unspecified; I25.2 Old myocardial infarction; Z95.810 Presence of automatic (implantable) cardiac defibrillator; Z99.81 Dependence on supplemental oxygen; Z90.49 Acquired absence of other specified parts of digestive tract; Z98.49 Cataract extraction status, unspecified eye; Y92.89 Other specified places as the place of occurrence of the external cause
CPT/HCPCS: 10045